=== PATIENT | female | born 1995 | race Caucasian/White ===

== ENCOUNTER 2016-06-30 17:25 | Emergency (ER) | payer MEDICAID ==
[~2016-06-30] VITALS: Ht 165.1 cm; Wt 56.0 kg
[2016-06-30 17:29] VITALS: Ht 165.1 cm; Wt 56.0 kg
--- NOTE | 2016-06-30 19:07 | ERD ---
ER Documentation Chief Complaint Date/Time DATE: 06/30/16 TIME: 19:05 Chief Complaint VAGINAL BLEEDING STARTED TO DAY 4 WEEKS LMP - 05/27/16 HPI This patient is a Ab0 LC 1, 20-year-old female who is currently 4 weeks presenting to the emergency department for spotting which began today. She states this morning she noticed a brown spot in her underwear. She denies any pain, cramping, fevers, chills, nausea, vomiting, diarrhea, urinary symptoms or other symptoms at this time. ROS All systems reviewed and are negative except as per history of present illness. Medications Home Meds Active Scripts Cephalexin* (Cephalexin*) 500 Mg Capsule, 500 MG PO Q8, #21 CAP Prov:HEYDI ARCOS PA-C 06/30/16 Allergies Allergies: Coded Allergies: No Known Allergy (Unverified , 06/30/16) PMhx/Soc Medical and Surgical Hx: pt denies Medical Hx, pt denies Surgical Hx Hx Alcohol Use: No Hx Substance Use: No Hx Tobacco Use: No Smoking Status: Never smoker FmHx Noncontributory for chief complaint Physical Exam Vitals Vital Signs Date Time Temp Pulse Resp B/P Pulse Ox O2 Delivery O2 Flow Rate FiO2 06/30/16 17:29 98.5 122 18 127/79 100 Physical Exam INITIAL VITAL SIGNS: Reviewed by me. GENERAL: Alert and interactive. No acute distress. HEAD: Head is normocephalic and atraumatic. EYES: EOMI. No scleral icterus. No conjunctival injection. ENT: Moist mucosa. NECK: Supple. Full range of motion. RESPIRATORY: Normal respiratory effort. Clear breath sounds bilaterally. No wheezing, rales, or rhonchi. CV: Regular rate and rhythm. Normal S1 S2. No S3 or S4. No murmurs. ABDOMEN: Soft, non-distended, non-tender. No guarding. No rebound. No masses. EXTREMITIES: No deformity. SKIN: Warm and dry. NEUROLOGIC: Alert and oriented x 4. Speech is normal. Moves all extremities equally. No motor or sensory deficits noted. Result Diagram: 06/30/16 1920 Results 24 hrs Laboratory Tests Test 06/30/16 19:20 Basophils # 0.110^3/ul Basophils % 0.3% Beta HCG, Quantitative 46.9mIU/ml Eosinophils # 0.110^3/ul Eosinophils % 0.6% Hematocrit 40.3% Hemoglobin 13.6g/dl Lymphocytes # 1.610^3/ul Lymphocytes % 10.7% Mean Corpuscular Hemoglobin 30.4pg Mean Corpuscular Hemoglobin Concent 33.8g/dl Mean Corpuscular Volume 90.0fl Mean Platelet Volume 8.8fl Monocytes # 0.710^3/ul Monocytes % 4.6% Neutrophils # 12.610^3/ul Neutrophils % 83.8% Nucleated Red Blood Cells # 0.010^3/ul Nucleated Red Blood Cells % 0.0/100WBC Platelet Count 92695^3/UL Red Blood Count 4.4810^6/ul Red Cell Distribution Width 13.1% Urine Bacteria MODERATE Urine Bilirubin NEGATIVE Urine Clarity CLOUDY Urine Color LT. YELLOW Urine Glucose NEGATIVE% Urine Hemoglobin 3+ Urine Ketones 15 Urine Leukocyte Esterase 2+ Urine Microscopic RBC >50/HPF Urine Microscopic WBC 10-25/HPF Urine Mucus MODERATE Urine Nitrite NEGATIVE Urine Specific [place] 1.015 Urine Squamous Epithelial Cells MODERATE Urine Total Protein 2+ Urine Urobilinogen 0.2 E.U./dL Urine pH 6.0 White Blood Count 15.010^3/ul Procedures/MDM EMERGENCY DEPARTMENT COURSE / MEDICAL DECISION MAKING: This patient is a 20-year-old female, Ab0 LC 1 who is currently 4 weeks presenting to the emergency department for brown spotting which occurred in her underwear today. On physical examination there is no tenderness to palpation of the suprapubic area or the abdomen. Lab results reviewed and showed a beta hCG of 46. UA results showed signs of urinary tract infection. Radiology: PROCEDURE: US OB. CLINICAL INDICATION: with vaginal bleeding. TECHNIQUE: Transabdominal imaging of the gravid uterus was performed. Images are reviewed on a high-resolution PACS workstation. The patient refused a transvaginal examination. COMPARISON: None available. FINDINGS: No intrauterine is identified. The uterus measures 7.4 x 3.9 x 5.5 cm. The endometrium measures 14 mm in thickness. The right ovary measures 3.8 x 2.6 x 1.7 cm and the left ovary measures 3.4 x 1.9 x 2.1 cm. There is flow demonstrated within both ovaries. There are no adnexal masses. There is no free fluid within the pelvis. IMPRESSION: 1. No intrauterine is identified, as questioned. Although this can be a normal finding an early , ectopic is not excluded and correlation with serial beta HCG and short interval follow-up ultrasound is recommended. The primary diagnosis is vaginal bleeding with possible missed . Secondary diagnosis is urinary tract infection. I have low suspicion for ectopic , ovarian torsion, or other emergencies at this time. However based off of the ultrasound results I recommended that the patient return very soon for repeat ultrasound and beta hCG. The patient understands this information. Discharge: I have discussed the lab results and diagnostic findings with the patient and answered any questions or concerns. The patient was discharged with a prescription for cephalexin for urinary tract infection. The patient was advised to followup with their PMD in 1-2 days and to return to the Emergency Department if there are any new or worsening symptoms. The patient understood and agreed with the diagnosis, treatment and plan. The patient is stable for discharge at this time. Departure Diagnosis: Primary Impression: Vaginal bleeding Additional Impression: Urinary tract infection Condition: Stable Additional Instructions: No mas mejor en 2-3 gonzales, regresar. Mas peor en 24 horas, regresear rapidamente. Ir a doctor primario in 5-7 gonzales. Usar instrucciones cuando pema medicamento. HEYDI ARCOS PA-C Jun 30, 2016 19:07
[2016-06-30 19:49] LABS: BASOPHIL # 0.1 10^3/ul (0.0-0.1); BASOPHILS % 0.3 % (0.0-2.0); EOSINOPHILS # 0.1 10^3/ul (0.0-0.5); EOSINOPHILS % 0.6 % (0.0-7.0); HEMATOCRIT 40.3 % (37.0-47.0); HEMOGLOBIN 13.6 g/dl (12.0-16.0); LYMPHOCYTES # 1.6 10^3/ul (0.8-2.9); LYMPHOCYTES % 10.7 % (15.0-51.0); MEAN CORPUSCULAR HEMOGLOBIN 30.4 pg (29.0-33.0); MEAN CORPUSCULAR HGB CONC 33.8 g/dl (32.0-37.0); MEAN PLATELET VOLUME 8.8 fl (7.4-10.4); MONOCYTE # 0.7 10^3/ul (0.3-0.9); MONOCYTES % 4.6 % (0.0-11.0); NEUTROPHIL # 12.6 10^3/ul (1.6-7.5); NEUTROPHILS % 83.8 % (39.0-77.0); PLATELET COUNT 260 10^3/UL (140-440); RED BLOOD COUNT 4.48 10^6/ul (4.20-5.40); RED CELL DISTRIBUTION WIDTH 13.1 % (11.5-14.5)
[2016-06-30 19:59] LABS: CONDITION 1
[2016-06-30 20:04] LABS: ADD UMIC YES; URINE BILIRUBIN (Dip) NEGATIVE (NEGATIVE); URINE BLOOD (Dip) 3+ (NEGATIVE); URINE COLOR LT. YELLOW (YELLOW); URINE GLUCOSE (Dip) NEGATIVE (NEGATIVE); URINE KETONES (Dip) 15 (NEGATIVE); URINE LEUKOCYTE ESTERASE (Dip) 2+ (NEGATIVE); URINE NITRITE (Dip) NEGATIVE (NEGATIVE); URINE TOTAL PROTEIN (Dip) 2+ (NEGATIVE); URINE UROBILINOGEN (Dip) 0.2 E.U./dL (0.1-1.0)
--- NOTE | 2016-06-30 20:55 | RADRPT ---
PROCEDURE: US OB. CLINICAL INDICATION: with vaginal bleeding. TECHNIQUE: Transabdominal imaging of the gravid uterus was performed. Images are reviewed on a hi gh-resolution PACS workstation. The patient refused a transvaginal examination. COMPARISON: None available. FINDINGS: No intrauterine is identified. The uterus measures 7.4 x 3.9 x 5.5 cm. The endometrium measures 14 mm in thickness. The right ovary measures 3.8 x 2.6 x 1.7 cm and the left ovary measures 3.4 x 1.9 x 2.1 cm. There is flow demonstra markie within both ovaries. There are no adnexal masses. There is no free fluid within the pelvis. IMPRESSION: 1. No intrauterine is identified, as questioned. Although this can be a normal finding a n early , ectopic is not excluded and correlation with serial beta HCG and short interval follow-up ultrasound is recommended. RPTAT: HLBP .Daniel Lee MD, Date Time Electronically viewed and signed by .Daniel Lee MD, MD on 06/30/2016 20:54 .P/
[2016-06-30 21:09] LABS: SQUAMOUS EPITHELIAL CELL,UR MODERATE; URINE RBCS >50 /HPF (0)
[2016-06-30 21:10] LABS: BACTERIA,URINE MODERATE; MUCUS,URINE MODERATE
[2016-06-30] MEDS ORDERED: CEPH500C PO (22:21)
== END 2016-06-30 22:50 | disposition home or self-care (01) ==
LOC: FTE 17:25
DX: O20.9 Hemorrhage in early pregnancy, unspecified (principal); Z3A.01 Less than 8 weeks gestation of pregnancy
CPT/HCPCS: 36415; 76801; 81001; 84702; 85025; 86900; 86901; Z7502; 81003

== ENCOUNTER 2016-07-02 10:08 | Emergency (ER) | payer MEDICAID ==
[~2016-07-02] VITALS: Wt 58.6 kg
[~2016-07-02 10:08] MED LIST: CEPH500C PO
--- NOTE | 2016-07-02 11:45 | ERD ---
ER Documentation Chief Complaint Date/Time DATE: 07/02/16 TIME: 11:37 Chief Complaint vag bleed since 3 days ago. 4 wks preg. no pain just bleeding HPI 20 y/o female on her fourth week presents to ED for vaginal bleeding since Saturday. Stated that it was "little bleeding last Saturday but today is much more worse." Dated that she saw a big clot today and changes about 1 sanitary towel every 3 hours total of 5 sanitary towels since yesterday. She does not have any difficulty walking but states that whenever she stands up her bleeding starts and whenever she states her bleeding stops. Found out that she is on her urine at home twice. Then she went to a family clinic dated urine twice the first 1 was negative and after an hour it was positive. Then she was told that she is . After the HPI and physical exam, patient stated that she was here last Saturday and had an ultrasound. Denies headache, loss of consciousness, dizziness, blurry vision, changes in vision, photophobia, facial pain, ear pain, throat pain, difficulty swallowing, neck pain, shoulder pain, chest pain, cough, hemoptysis, abdominal pain/cramping , pelvic pain/cramping, back pain, loss of appetite, nausea, vomiting, hematochezia, diarrhea, constipation, urinary symptoms, bladder and bowel incontinences, extremity weakness, extremity tenderness, numbness or tingling sensation, difficulty walking, recent travel, recent exposure to illness, recent antibiotic use in the last 3 months, fever, chills. 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 ROS All systems reviewed and are negative except as per history of present illness. Medications Home Meds Active Scripts Cephalexin* (Cephalexin*) 500 Mg Capsule, 500 MG PO Q8, #21 CAP Prov:HEYDI ARCOS PA-C 06/30/16 Allergies Allergies: Coded Allergies: No Known Allergy (Unverified , 06/30/16) PMhx/Soc Denies Medical and Surgical Hx: pt denies Medical Hx, pt denies Surgical Hx Hx Alcohol Use: No Hx Substance Use: No Hx Tobacco Use: No FmHx Denies Physical Exam Vitals Vital Signs Date Time Temp Pulse Resp B/P Pulse Ox O2 Delivery O2 Flow Rate FiO2 07/02/16 10:11 97.8 100 20 124/70 100 Physical Exam CONSTITUTIONAL: Well-appearing; well-nourished; in no apparent distress. HEAD: Normocephalic; atraumatic. EYES: Conjunctiva clear, sclera non-icteric, EOM intact. PERRL Ears: Hearing intact. EACs clear, TMs non-bulging, non-inflamed, translucent & mobile, ossicles normal appearance, No obstructions, no erythema, no discharges Nose: No obstructions. No polyps. No external lesions. Mucosa non-inflamed. No external lesions, septum and turbinates normal. No rhinorrhea. No discharges. Frontal sinus is non-tender to palpation. Maxillary sinus is non-tender to palpation. MOUTH: Moist mucous membranes, no lesion, no obstructions, no vesicles, no thrush, patent airway Throat: Uvula in midline. Right tonsil is +1 with no erythema, no exudate. Left tonsil is +1 with no erythema, no exudate. Tolerating secretions well. Good gag reflex. Patent airway. Neck: Supple, without lesions, bruits, or adenopathy. No mass. Thyroid non- enlarged and non-tender to palpation. CHEST: Symmetrical chest. Respirations even and not labored. No retractions noted. CARDIOVASCULAR: Normal S1, S2. RRR. No murmurs, gallops. RESPIRATORY: Normal chest excursion with respiration; breath sounds clear and equal bilaterally; no wheezes, rhonchi, or rales. Breathing even and unlabored. Speaking in clear, full, and complete sentences w/ ease. ABDOMEN: Normal bowel sounds normal. Soft, round, non-distended, non-guarding, no tenderness, no rebound, no organomegaly, no masses, no pulsating abdominal mass. No hernia. No peritoneal signs. : No CVA tenderness. BACK: Symmetrical shoulder. Spine is midline without deformity, tenderness. No evidence of trauma or deformity. PELVIS: Stable pelvis. No evidence of trauma or deformity. MUSCULOSKELETAL: Normal gait and station. No misalignment, asymmetry, crepitation, defects, tenderness, masses, effusions, decreased range of motion, instability, atrophy or abnormal strength or tone in the head, neck, spine, ribs , pelvis or extremities. No calf tenderness. NEUROVASCULAR: Distal pulses are present. Pedal pulse are present, equal, and normal. Capillary refills are < 2 seconds. NEUROLOGIC: Alert and oriented x4. Speaks full and clear sentences. Cranial Nerves II-XII normal. Sensation to pain, touch, and proprioception normal. Grossly unremarkable. No neurologic deficits. Romberg test is negative. PSYCHOLOGICAL: The patients mood and manner are appropriate. No hallucinations , delusions. Not SI. Not HI. Has the capacity to decide for self SKIN: Normal for age and ethnicity; warm; dry; good turgor; no apparent lesions or exudates. No rashes, hives, discoloration. Intact. Result Diagram: 07/02/16 1158 Results 24 hrs Laboratory Tests Test 07/02/16 11:58 07/02/16 12:31 Basophils # 0.010^3/ul Basophils % 0.3% Beta HCG, Quantitative 11.6mIU/ml Eosinophils # 0.010^3/ul Eosinophils % 0.3% Hematocrit 40.4% Hemoglobin 13.7g/dl Lymphocytes # 1.110^3/ul Lymphocytes % 7.9% Mean Corpuscular Hemoglobin 30.2pg Mean Corpuscular Hemoglobin Concent 33.9g/dl Mean Corpuscular Volume 89.0fl Mean Platelet Volume 8.7fl Monocytes # 0.410^3/ul Monocytes % 2.9% Neutrophils # 12.710^3/ul Neutrophils % 88.6% Nucleated Red Blood Cells # 0.010^3/ul Nucleated Red Blood Cells % 0.0/100WBC Platelet Count 43003^3/UL Red Blood Count 4.5410^6/ul Red Cell Distribution Width 12.9% White Blood Count 14.310^3/ul Urine Bacteria FEW Urine Bilirubin 1+ Urine Clarity CLEAR Urine Color YELLOW Urine Epithelial Cells FEW Urine Glucose NEGATIVE% Urine Hemoglobin 3+ Urine Ictotest NEGATIVE Urine Ketones 3+ Urine Leukocyte Esterase TRACE Urine Microscopic RBC 10-25/HPF Urine Microscopic WBC 0-2/HPF Urine Nitrite NEGATIVE Urine Specific [place] >=1.030 Urine Total Protein 1+ Urine Urobilinogen 1.0 E.U./dL Urine pH 6.0 Procedures/MDM Examination. Case and medical management was discussed with Dr. Jae Jones. He agreed with present treatment and after care. Disease process, medical treatment was explained to the patient and family member. They verbalized understanding and agreed with the diagnostic tests, medical treatment, and follow-up care. Radiology: Ultrasound of the pelvis was performed with transabdominal sonography and axial and sagittal planes. Findings of the radiologist revealed there is no intrauterine gestation sac. The uterus measures 7.4 x 4.0 x 4.7 cm. Endometrial thickness is 9.2 mm. The endometrium appears normal. The ovaries are not visualized. There is no other pelvic mass or free fluid. Impression: No intrauterine gestational sac; if the patient has a positive test, ectopic gestation cannot be excluded; ovaries not visualized; otherwise unremarkable study. Blood works unremarkable except WBCs 14.3; hemoglobin and hematocrit are 13.7/40.4; platelets 235; beta hCG is 11.6 mIU/ml(46.9 previously). POC urine : Urinalysis: Urinalysis revealed Treatment: Pelvic exam done by Dr. Jae Jones. No active bleeding on the cervical OS. No signs of hemorrhaging. Re-evaluation: Patient denies active bleeding. Denies abdominal pain/cramping, back pain/cramping, shoulder pain. Consultation: None Differential diagnosis: missed miscarriage versus incomplete miscarriage versus complete versus ectopic Medical decision makin20 y/o female on her fourth week presents to ED for vaginal bleeding since Saturday. Stated that it was "little bleeding last Saturday but today is much more worse." Dated that she saw a big clot today and changes about 1 sanitary towel every 3 hours total of 5 sanitary towels since yesterday. She does not have any difficulty walking but states that whenever she stands up her bleeding starts and whenever she states her bleeding stops. Found out that she is on her urine at home twice. Then she went to a family clinic dated urine twice the first 1 was negative and after an hour it was positive. Then she was told that she is . After the HPI and physical exam, patient stated that she was here last Saturday and had an ultrasound that revealed no intrauterine is identified, as questioned. Ultrasound today revealed no intrauterine gestational sac. Patient's complaint, history, physical findings, diagnostic test results are consistent with my final diagnosis of complete miscarriage. Medications prescribed are the following: Tylenol Patient and family member are made aware of the side effects and adverse reactions of the medications prescribed. Instructed on when to seek emergent and medical attention in case allergic/anaphylactic reactions or severe side effects and or adverse reactions to medications. Patient and family member verbalized understanding. Patient instructed Instructed to follow-up with his PCP in 24-48 hours. Follow-up with your OB in 24-48 hours for a re-evaluation. Instructed to Call 911 for chest pain, shortness of breath. Advised to come back here in ED as soon as possible for severity of symptoms which includes but not limited to: any new symptoms; shortness of breath/difficulty of breathing; cardiovascular changes; severe gastrointestinal symptoms; signs and symptoms of bleeding and or infection; signs of compartment syndrome/neurovascular changes; neurological changes/deficits. Patient and family member verbalized understanding. Upon discharge, patient is alert and oriented x 4, speaks full and clear sentences, denies pain, has no neurological deficits, has no neurovascular deficits, difficulty of breathing. Breathing even and unlabored. Lung sounds are clear to auscultation. Not in distress. Appears comfortable. Ambulatory with steady gait. Appears satisfied with care provided here in ED. Departure Condition: Stable Additional Instructions: Patient instructed Instructed to follow-up with his PCP in 24-48 hours. Follow-up with your OB in 24-48 hours for a re-evaluation. Instructed to Call 911 for chest pain, shortness of breath. Advised to come back here in ED as soon as possible for severity of symptoms which includes but not limited to: any new symptoms; shortness of breath/difficulty of breathing; cardiovascular changes; severe gastrointestinal symptoms; signs and symptoms of bleeding and or infection; signs of compartment syndrome/neurovascular changes; neurological changes/deficits. Patient and family member verbalized understanding. ASHER BLACK Jul 02, 2016 11:45
[2016-07-02 12:26] LABS: BASOPHILS % 0.3 % (0.0-2.0); EOSINOPHILS % 0.3 % (0.0-7.0); HEMATOCRIT 40.4 % (37.0-47.0); HEMOGLOBIN 13.7 g/dl (12.0-16.0); LYMPHOCYTES # 1.1 10^3/ul (0.8-2.9); LYMPHOCYTES % 7.9 % (15.0-51.0); MEAN CORPUSCULAR HEMOGLOBIN 30.2 pg (29.0-33.0); MEAN CORPUSCULAR HGB CONC 33.9 g/dl (32.0-37.0); MEAN PLATELET VOLUME 8.7 fl (7.4-10.4); MONOCYTE # 0.4 10^3/ul (0.3-0.9); MONOCYTES % 2.9 % (0.0-11.0); NEUTROPHIL # 12.7 10^3/ul (1.6-7.5); NEUTROPHILS % 88.6 % (39.0-77.0); PLATELET COUNT 235 10^3/UL (140-440); RED BLOOD COUNT 4.54 10^6/ul (4.20-5.40); RED CELL DISTRIBUTION WIDTH 12.9 % (11.5-14.5); UNCORRECTED WBC 14.3 10^3/ul (4.8-10.8); WHITE BLOOD COUNT 14.3 10^3/ul (4.8-10.8)
[2016-07-02 12:27] LABS: CONDITION 1
--- NOTE | 2016-07-02 12:29 | RADRPT ---
PROCEDURE: OB Ultrasound. CLINICAL INDICATION: Positive test. Vaginal bleeding. TECHNIQUE: Ultrasound of the pelvis was performed with transabdominal sonography in the axial and sagittal planes. This is a limited study as the patient refused transvaginal sonography. COMPARISON: No prior study is available for comparison. FINDINGS: There is no intrauterine gestational sac. The uterus measures 7.4 x 4.0 x 4.7 cm. Endometrial thic kness is 9.2 mm. The endometrium appears normal. The ovaries are not visualized. There is no othe r pelvic mass or free fluid. IMPRESSION: 1. No intrauterine gestational sac. If the patient has a positive test, ectopic gestatio n cannot be excluded. 2. Ovaries not visualized. 3. Otherwise unremarkable study. RPTAT: QQ .Jae Khalil MD, Date Time Electronically viewed and signed by .Jae Khalil MD, on 07/02/2016 12:28 .R/
[2016-07-02 12:41] LABS: ADD UMIC YES; URINE BILIRUBIN (Dip) 1+ (NEGATIVE); URINE BLOOD (Dip) 3+ (NEGATIVE); URINE COLOR YELLOW (YELLOW); URINE GLUCOSE (Dip) NEGATIVE (NEGATIVE); URINE KETONES (Dip) 3+ (NEGATIVE); URINE LEUKOCYTE ESTERASE (Dip) TRACE (NEGATIVE); URINE NITRITE (Dip) NEGATIVE (NEGATIVE); URINE TOTAL PROTEIN (Dip) 1+ (NEGATIVE); URINE UROBILINOGEN (Dip) 1.0 E.U./dL (0.1-1.0)
[2016-07-02 13:34] LABS: BACTERIA,URINE FEW; ICTOTEST NEGATIVE (NEGATIVE)
[2016-07-02] MEDS ORDERED: ACET500C5 PO (13:42)
[2016-07-02 13:50] VITALS: BP 116/61; PULSE 86; RESP 16; TEMP 98.2
== END 2016-07-02 16:49 | disposition home or self-care (01) ==
LOC: FTE 10:08
DX: O03.9 Complete or unspecified spontaneous abortion without complication (principal); Z3A.01 Less than 8 weeks gestation of pregnancy
CPT/HCPCS: 76801; 81001; 81003; 84702; 85025

== ENCOUNTER 2017-08-06 21:35 | Observation (INO) | END 2017-08-08 14:10 | disposition home or self-care (01) ==